=== PATIENT | male | born 2005 | race Caucasian/White ===

== ENCOUNTER 2023-10-25 20:24 | Emergency (ER) | payer MEDICAID ==
[~2023-10-25] VITALS: Ht 182.9 cm; Wt 82.0 kg
[2023-10-26 00:17] VITALS: BP 134/72; PULSE 96; RESP 20; TEMP 98; O2SAT 97
[2023-10-26] MEDS ORDERED: MUPI2OIN2 EX (02:52)
[2023-10-26] MEDS ORDERED: IBUP1TAB5 PO (02:52)
[2023-10-26] MEDS ORDERED: CEPH500C PO (02:52)
[2023-10-26] MEDS: IBUPROFEN 800 MG TAB PO ONE (03:00)
[2023-10-26] MEDS: CEPHALEXIN 250 MG CAP PO ONE (03:00)
[2023-10-26] MEDS: LIDOCAINE 1% HCL (LOCAL ANESTH.) INJ 20ML MDV ID ONE (03:00)
[2023-10-26] MEDS: TETANUS-DIPTH-ACEL PERTUSSIS 0.5ML SYR Tdap IM ONE (03:36)
== END 2023-10-26 04:01 | disposition home or self-care (01) ==
LOC: ER 20:24 → EDBD 20:24 → ER 10-26 04:00
DX: S81.011A Laceration without foreign body, right knee, initial encounter (principal); S83.91XA Sprain of unspecified site of right knee, initial encounter; S93.401A Sprain of unspecified ligament of right ankle, initial encounter; S70.11XA Contusion of right thigh, initial encounter; S70.01XA Contusion of right hip, initial encounter; V29.99XA Rider (driver) (passenger) of other motorcycle injured in unspecified traffic accident, initial encounter; Y93.89 Activity, other specified; Y92.488 Other paved roadways as the place of occurrence of the external cause; Y99.8 Other external cause status
CPT/HCPCS: 12002; 29505; 29515; 72170; 72192; 73562; 73610; 90471; 90715